=== PATIENT | female | born 1975 | race Caucasian/White ===

== ENCOUNTER → 2016-10-20 | Outpatient (CLI) | payer OTHER ==
[~2016-10-20] MED LIST: ALPRAZOLAM0.5 MG PO; BIRTH CONTROL PILL PO; CLARITIN10 M2 PO; LUVOX100 MG PO; PRAVASTATIN SOD40 MG PO; PROBIOTIC1 EAC1 PO; TRAZODONE HCL150 MG PO; TRICOR PO
[2016-10-20 10:37] LABS: CHOLESTEROL 159 mg/dL (0-200); GLUCOSE FASTING 91 mg/dL (70-110); HDL CHOLESTEROL 60 mg/dL (35-95); LDL CHOLESTEROL 74 mg/dL ([, -130]); LDL/HDL RATIO 1 RATIO (0-4); TRIGLYCERIDES 124 mg/dL (10-160)
== END | disposition home or self-care (01) ==
LOC: CLAB 09:17
PROVIDERS: Surgery
DX: E66.01 Morbid (severe) obesity due to excess calories (principal)
CPT/HCPCS: 36415; 80061; 82947

== ENCOUNTER → 2017-03-25 | Outpatient (CLI) | payer SELFPAY | END | disposition home or self-care (01) | LOC: CBAR 07:54 | DX: E66.01 Morbid (severe) obesity due to excess calories (principal) | CPT/HCPCS: 36415; 76000; 80061; 82947 ==